=== PATIENT | male | born 1985 | race Two or more races ===

== ENCOUNTER 2017-07-02 08:34 | Emergency (ER) | payer SELFPAY ==
[~2017-07-02] VITALS: Ht 175.3 cm; Wt 88.0 kg
[~2017-07-02 08:34] MED LIST: ANAPROX DS550 M1 PO; NOHOMEMEDS; PROMETHAZINE HC25 M1 PO; ROBITUSSIN AC,T10 ML PO
[2017-07-02 09:15] LABS: BASOPHIL COUNT 0.1 K/uL (0-0.1); EOSINOPHIL (%) 3.3 % (0-5); EOSINOPHIL COUNT 0.2 K/uL (0-0.3); HEMATOCRIT 40.8 % (38.0-50.0); IMMATURE GRANULOCYTE (%) 1.4 % (0.0-0.7); IMMATURE GRANULOCYTE COUNT 0.1 K/uL; INSTRUMENT ABS NEUTROPHIL CT 3.1 K/uL; LYMPHOCYTE COUNT 2.3 K/uL (1.0-2.8); MCH 30.3 PG (29.0-34.0); MCHC 34.6 G/DL (30.0-36.0); MCV 87.6 FL (86-99); MEAN PLAT.VOLUME 9.9 uM^3 (9.0-12.4); MONOCYTE (%) 10.6 % (3-12); MONOCYTE COUNT 0.7 K/uL (0-0.8); NEUTROPHIL (%) 48.4 % (45-76); NEUTROPHIL COUNT 3.1 K/uL (1.8-6.4); PLATELET COUNT 253 K/uL (156-360); RBC DIS.WIDTH-CV 11.5 % (11.8-14.6); RBC DIS.WIDTH-SD 36.8 % (39-53); RED BLOOD COUNT 4.66 M/uL (4.00-5.50); WHITE BLOOD COUNT 6.4 K/uL (4.1-10.2)
[2017-07-02 09:26] LABS: CHLORIDE 103 mEq/L (99-109); POTASSIUM 4.3 mEq/L (3.7-5.4); SODIUM 135 mEq/L (136-147)
[2017-07-02 09:29] LABS: GLUCOSE 91 mg/dL (70-99)
[2017-07-02 09:30] LABS: ANION GAP 10 MEQ/L (2-14)
[2017-07-02 09:31] LABS: TOTAL BILIRUBIN 0.4 mg/dL (0.0-1.0)
[2017-07-02 09:32] LABS: ALKALINE PHOSPHATASE 102 IU/L (3-129); GFR ESTIMATE (CALCULATED) > 59 mL/min/
[2017-07-02 09:33] LABS: UREA NITROGEN (BUN) 11 mg/dL (9-23)
[2017-07-02 09:36] LABS: LIPASE 16 U/L (1.0-51.0)
[2017-07-02 10:18] LABS: ADD MIUA? NO; BILIRUBIN NEGATIVE; BLOOD NEGATIVE; COLOR STRAW ((YELLOW)); GLUCOSE (STRIP) NEGATIVE; KETONES NEGATIVE; LEUKOCYTES NEGATIVE; NITRITE NEGATIVE; PROTEIN (STRIP) NEGATIVE; SPECIFIC GRAVITY 1.009 (1.000-1.030); UROBILINOGEN 0.2 MG/DL (0.2-1.0)
[2017-07-02] MEDS ORDERED: BENTYL10 MG PO (10:49)
[2017-07-02 11:06] VITALS: BP 175/111
== END 2017-07-02 11:07 | disposition home or self-care (01) ==
LOC: EME 08:34
PROVIDERS: Physician Assistant
DX: R10.84 Generalized abdominal pain (principal); R03.0 Elevated blood-pressure reading, without diagnosis of hypertension; F17.200 Nicotine dependence, unspecified, uncomplicated
CPT/HCPCS: 74177; 80053; 81003; 83690; 85025; 99281; 99284; J1885; J7040

== ENCOUNTER 2017-11-22 14:22 | Emergency (ER) | payer BC ==
[~2017-11-22] VITALS: Ht 172.7 cm; Wt 86.0 kg
[~2017-11-22 14:22] MED LIST changes: +BENTYL10 MG PO
[2017-11-22 15:18] LABS: HEMATOCRIT 43.1 % (38.0-50.0); MCH 30.7 PG (29.0-34.0); MCHC 34.8 G/DL (30.0-36.0); MCV 88.3 FL (86-99); PLATELET COUNT 308 K/uL (156-360); RBC DIS.WIDTH-CV 11.9 % (11.8-14.6); RBC DIS.WIDTH-SD 38.5 % (39-53); RED BLOOD COUNT 4.88 M/uL (4.00-5.50)
[2017-11-22 15:26] LABS: CHLORIDE 106 mEq/L (99-109); POTASSIUM 3.6 mEq/L (3.7-5.4); SODIUM 139 mEq/L (136-147)
[2017-11-22 15:28] LABS: GLUCOSE 122 mg/dL (70-99)
[2017-11-22 15:31] LABS: CREATININE 0.9 mg/dL (0.6-1.3); GFR ESTIMATE (CALCULATED) > 59 mL/min/ (58.99-99999)
[2017-11-22 15:32] LABS: UREA NITROGEN (BUN) 8 mg/dL (9-23)
[2017-11-22 15:39] LABS: TROP-I INTERPRETATION NEGATIVE; TROPONIN-I < 0.01 ng/mL (0.0-0.30)
[2017-11-22] MEDS ORDERED: PRILOSEC20 MG PO (16:09)
[2017-11-22 16:29] VITALS: BP 166/95
[2017-11-28] MEDS ORDERED: CARAFATE1 GM PO (16:06)
[2017-11-28] MEDS ORDERED: ZESTRIL40 MG PO (16:06)
[2017-11-28] MEDS ORDERED: PROTONIX40 MG PO (16:07)
[2017-11-28] MEDS ORDERED: TYLENOL EXTRA500 MG PO (16:07)
[2017-11-28] MEDS ORDERED: VENTOLIN HFA18 GM IH (16:09)
== END 2017-11-22 16:31 | disposition home or self-care (01) ==
LOC: EME 14:22
PROVIDERS: Physician Assistant Medical
DX: R07.9 Chest pain, unspecified (principal); K21.9 Gastro-esophageal reflux disease without esophagitis; J45.909 Unspecified asthma, uncomplicated; F17.200 Nicotine dependence, unspecified, uncomplicated
CPT/HCPCS: 71045; 80048; 84484; 85027; 93005; 99281; 99285

== ENCOUNTER 2017-12-03 05:32 | Day surgery (SDC) | payer BC ==
[~2017-12-03] VITALS: Ht 172.7 cm; Wt 86.2 kg
[~2017-12-03 05:32] MED LIST changes: +CARAFATE1 GM PO; +PRILOSEC20 MG PO; +PROTONIX40 MG PO; +TYLENOL EXTRA500 MG PO; +VENTOLIN HFA18 GM IH; +ZESTRIL40 MG PO
[2017-12-03 06:54] VITALS: BP 143/94
[2017-12-03] MEDS ORDERED: HYDROCODON-ACE1 EAC7 PO (09:16)
[2017-12-03 11:05] VITALS: BP 127/66
[2017-12-03 12:00] VITALS: BP 136/73
== END 2017-12-03 12:15 | disposition home or self-care (01) ==
LOC: SDC 05:32
PROC: 0WUF4JZ Supplement Abdominal Wall with Synthetic Substitute, Percutaneous Endoscopic Approach (ICD-10-PCS; principal; 2017-12-03)
DX: K43.0 Incisional hernia with obstruction, without gangrene (principal); I10 Essential (primary) hypertension; J45.909 Unspecified asthma, uncomplicated; F17.200 Nicotine dependence, unspecified, uncomplicated; E66.9 Obesity, unspecified; Z68.28 Body mass index [BMI] 28.0-28.9, adult
CPT/HCPCS: C1781; J0690; J1100; J1170; J1885; J2175; J2250; J2405; J2710; J2795; J3010

== ENCOUNTER 2017-12-21 09:05 | Emergency (ER) | payer BC ==
[~2017-12-21] VITALS: Ht 172.7 cm; Wt 83.5 kg
[~2017-12-21 09:05] MED LIST changes: +HYDROCODON-ACE1 EAC7 PO
[2017-12-21 09:10] VITALS: BP 153/119
[2017-12-21 09:44] LABS: HEMATOCRIT 42.9 % (38.0-50.0); HEMOGLOBIN 14.7 G/DL (12.5-16.6); MCH 30.2 PG (29.0-34.0); MCHC 34.3 G/DL (30.0-36.0); MCV 88.3 FL (86-99); PLATELET COUNT 383 K/uL (156-360); RBC DIS.WIDTH-CV 11.3 % (11.8-14.6); RBC DIS.WIDTH-SD 36.5 % (39-53); RED BLOOD COUNT 4.86 M/uL (4.00-5.50); WHITE BLOOD COUNT 5.9 K/uL (4.1-10.2)
[2017-12-21 10:03] LABS: ALBUMIN 4.3 G/DL (3.2-4.8); CHLORIDE 109 MEQ/L (99-109); POTASSIUM 4.7 MEQ/L (3.7-5.4); SODIUM 143 MEQ/L (136-147); TOTAL BILIRUBIN 0.3 MG/DL (0.0-1.0)
[2017-12-21 10:08] LABS: ALKALINE PHOSPHATASE 87 IU/L (3-129); ALT (GPT) 12 IU/L (3-49); AST (GOT) 17 IU/L (2-34); CREATININE 1.1 MG/DL (0.6-1.3); GFR ESTIMATE (CALCULATED) > 59 mL/min/ (58.99-99999); GLUCOSE 95 mg/dL (70-99); TOTAL PROTEIN 6.9 G/DL (6.4-8.3); UREA NITROGEN (BUN) 10 mg/dL (9-23)
[2017-12-21] MEDS ORDERED: COLACE100 MG PO (19:01)
[2017-12-21] MEDS ORDERED: NAPROSYN500 MG PO (19:01)
[2017-12-21] MEDS ORDERED: FLOMAX0.4 MG PO (19:01)
== END 2017-12-21 11:04 | disposition left against medical advice (07) ==
LOC: EME 09:05
DX: R10.9 Unspecified abdominal pain (principal); Z98.890 Other specified postprocedural states; Z53.21 Procedure and treatment not carried out due to patient leaving prior to being seen by health care provider
CPT/HCPCS: 80053; 81003; 85027

== ENCOUNTER 2017-12-21 12:59 | Emergency (ER) | payer BC ==
[~2017-12-21] VITALS: Ht 172.7 cm; Wt 83.1 kg
[2017-12-21 15:58] LABS: APPEARANCE CLEAR ((CLEAR)); BILIRUBIN NEGATIVE; BLOOD SMALL; COLOR YELLOW ((YELLOW)); GLUCOSE (STRIP) NEGATIVE; KETONES NEGATIVE; LEUKOCYTES NEGATIVE; NITRITE NEGATIVE; PROTEIN (STRIP) NEGATIVE; SPECIFIC GRAVITY 1.029 (1.000-1.030); UROBILINOGEN 0.2 MG/DL (0.2-1.0)
[2017-12-21 16:15] LABS: BACTERIA NONE SEEN /HPF; EPITHELIAL CELLS NONE SEEN /HPF; HYALINE CASTS 0-5 /LPF; MUCUS 2+ /LPF; UCUL ADDED? NO; WHITE BLOOD CELLS 0-5 /HPF (0-5)
[2017-12-21] MEDS ORDERED: FLOMAX0.4 MG PO (19:01)
[2017-12-21] MEDS ORDERED: NAPROSYN500 MG PO (19:01)
[2017-12-21] MEDS ORDERED: COLACE100 MG PO (19:01)
[2017-12-21 19:10] VITALS: BP 140/90
== END 2017-12-21 19:10 | disposition home or self-care (01) ==
LOC: EME 12:59
PROVIDERS: Nurse Practitioner Family
DX: K59.00 Constipation, unspecified (principal); N20.0 Calculus of kidney; G89.18 Other acute postprocedural pain; J45.909 Unspecified asthma, uncomplicated; F17.200 Nicotine dependence, unspecified, uncomplicated; Z71.6 Tobacco abuse counseling
CPT/HCPCS: 74021; 76705; 76770; 81003; 99281; 99284